=== PATIENT | female | born 1990 | race Caucasian/White ===

== ENCOUNTER 2016-08-18 14:43 | Observation (INO) ==
--- NOTE | 2016-08-18 15:22 | Emergency Department Note ---
Disposition Clinical Impression: Edema, IVDU (intravenous drug user), Nausea, Viral infection Disposition: Admitted As Inpatient Condition: Fair Referrals: NO,PCP [Primary Care Provider] - Forms: ED Satisfaction Letter General Adult HPI - General Chief complaint: ED Upper Respiratory Infection Stated complaint: swelling hands.feet and tired Time Seen by Provider: 08/18/16 15:18 Source: patient Limitations: no limitations - History of Present Illness Pain Scale: 4 - Related Data Home Medications Medication Instructions Recorded Confirmed No Known Home Drugs 08/18/16 08/18/16 Allergies Allergy/AdvReac Type Severity Reaction Status Date / Time vancomycin Allergy Itching Verified 05/14/16 10:13 Past Medical History - Past Medical History Medical history: Reports: no medical history Surgical history: Reports: non-contributory Psychiatric history: Reports: anxiety, bipolar, depression, previous psychiatric hospitalization, 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 - Social History Smoking Status: Current every day smoker Smokeless Tobacco Status: No Alcohol use: Reports: occasionally Drug use: Reports: cocaine, opiates, IVDU Physical Exam - General Limitations: no limitations General appearance: alert, in no apparent distress Course Vital Signs Temperature 98.1 F 08/18/16 14:44 Pulse Rate 103 08/18/16 14:44 Respiratory Rate 16 08/18/16 14:44 Blood Pressure 123/72 08/18/16 14:44 O2 Sat by Pulse Oximetry 98 08/18/16 14:44 Temperature 98.1 F 08/18/16 14:44 Pulse Rate 107 08/18/16 17:45 Respiratory Rate 18 08/18/16 17:45 Blood Pressure 122/84 08/18/16 17:45 O2 Sat by Pulse Oximetry 100 08/18/16 17:45 Oxygen Delivery Oxygen Delivery Room Air Medical Decision Making - Lab Data Result diagrams: 08/18/16 16:40 08/18/16 16:40 Lab Results 08/18/16 08/18/16 08/18/16 Range/Units 16:35 16:40 16:40 WBC (4.3-11.1) K/mcL RBC (3.82-4.97) M/mcL Hgb (11.5-15.4) g/dL Hct (35.3-44.9) % MCV (83.0-100.0) fL MCH (28.0-33.3) pg MCHC (31.6-35.5) g/dL RDW (11.5-14.5) % Plt Count (140-400) K/mcL MPV (9.4-12.4) fL Immature Gran % (0-4) % Seg Neutrophils % % Lymphocytes % % Monocytes % % Eosinophils % % Basophils % % Neutrophils # (1.6-8.9) K/mcL Lymphocytes # (0.6-4.6) K/mcL Monocytes # (0.0-1.3) K/mcL Eosinophils # (0.0-0.6) K/mcL Basophils # (0.0-0.2) K/mcL ESR 10 (0-15) mm/hr PT (9.4-12.1) Seconds INR APTT (26.0-36.0) Seconds Sodium (136-145) mEq/L Potassium (3.5-4.5) mEq/L Chloride (98-109) mEq/L Carbon Dioxide (19-29) mEq/L BUN (7-20) mg/dL Creatinine (0.57-1.11) mg/dL Est GFR ( Amer) (> 60) Est GFR (Non-Af Amer) (> 60) BUN/Creatinine Ratio (6-26) Glucose (70-99) mg/dL Calculated Osmolality (280-300) Lactic Acid 1.2 (0.5-2.2) mmol/L Calcium (8.6-10.8) mg/dL Total Bilirubin (0.2-1.2) mg/dL Direct Bilirubin (0.0-0.5) mg/dL Indirect Bilirubin (0.0-1.2) mg/dL AST (5-34) Units/L ALT (0-55) Units/L Alkaline Phosphatase (38-126) Units/L Ammonia 21 (18-72) mcmol/L Troponin I (0-0.03) ng/mL C-Reactive Protein (Less than 5) mg/L B-Natriuretic Peptide (0-100) pg/mL Serum Total Protein (6.0-8.3) g/dL Albumin (3.5-5.0) g/dL Globulin (2.4-3.5) g/dL Albumin/Globulin Ratio (1.1-2.2) Lipase (8-78) Units/L Urine Color (Yellow) Urine Clarity (Clear) Urine pH (5.0-8.0) pH Units Ur Specific Hensley (1.010-1.025) Urine Protein (Neg-Trace) mg/dL Urine Glucose (UA) (Normal) mg/dL Urine Ketones (Negative) mg/dL Urine Blood (Negative) Urine Nitrite (Negative) Urine Bilirubin (Negative) Urine Urobilinogen (Normal) mg/dL Ur Leukocyte Esterase (Negative) Urine Microscopic RBC (0-3) per hpf Urine Microscopic WBC (0-3) per hpf Ur Squamous Epith Cells (None-Few) per lpf Urine Bacteria (None-Few) per hpf Hyaline Casts (None-Few) per lpf Ur Culture Indicated? (NO) Urine Test (Negative) 08/18/16 08/18/16 08/18/16 Range/Units 16:40 16:40 16:40 WBC (4.3-11.1) K/mcL RBC (3.82-4.97) M/mcL Hgb (11.5-15.4) g/dL Hct (35.3-44.9) % MCV (83.0-100.0) fL MCH (28.0-33.3) pg MCHC (31.6-35.5) g/dL RDW (11.5-14.5) % Plt Count (140-400) K/mcL MPV (9.4-12.4) fL Immature Gran % (0-4) % Seg Neutrophils % % Lymphocytes % % Monocytes % % Eosinophils % % Basophils % % Neutrophils # (1.6-8.9) K/mcL Lymphocytes # (0.6-4.6) K/mcL Monocytes # (0.0-1.3) K/mcL Eosinophils # (0.0-0.6) K/mcL Basophils # (0.0-0.2) K/mcL ESR (0-15) mm/hr PT 10.2 (9.4-12.1) Seconds INR 1.0 APTT 30.6 (26.0-36.0) Seconds Sodium (136-145) mEq/L Potassium (3.5-4.5) mEq/L Chloride (98-109) mEq/L Carbon Dioxide (19-29) mEq/L BUN (7-20) mg/dL Creatinine (0.57-1.11) mg/dL Est GFR ( Amer) (> 60) Est GFR (Non-Af Amer) (> 60) BUN/Creatinine Ratio (6-26) Glucose (70-99) mg/dL Calculated Osmolality (280-300) Lactic Acid (0.5-2.2) mmol/L Calcium (8.6-10.8) mg/dL Total Bilirubin (0.2-1.2) mg/dL Direct Bilirubin (0.0-0.5) mg/dL Indirect Bilirubin (0.0-1.2) mg/dL AST (5-34) Units/L ALT (0-55) Units/L Alkaline Phosphatase (38-126) Units/L Ammonia (18-72) mcmol/L Troponin I (0-0.03) ng/mL C-Reactive Protein 15 H (Less than 5) mg/L B-Natriuretic Peptide 16 (0-100) pg/mL Serum Total Protein (6.0-8.3) g/dL Albumin (3.5-5.0) g/dL Globulin (2.4-3.5) g/dL Albumin/Globulin Ratio (1.1-2.2) Lipase (8-78) Units/L Urine Color (Yellow) Urine Clarity (Clear) Urine pH (5.0-8.0) pH Units Ur Specific Hensley (1.010-1.025) Urine Protein (Neg-Trace) mg/dL Urine Glucose (UA) (Normal) mg/dL Urine Ketones (Negative) mg/dL Urine Blood (Negative) Urine Nitrite (Negative) Urine Bilirubin (Negative) Urine Urobilinogen (Normal) mg/dL Ur Leukocyte Esterase (Negative) Urine Microscopic RBC (0-3) per hpf Urine Microscopic WBC (0-3) per hpf Ur Squamous Epith Cells (None-Few) per lpf Urine Bacteria (None-Few) per hpf Hyaline Casts (None-Few) per lpf Ur Culture Indicated? (NO) Urine Test (Negative) 08/18/16 08/18/16 08/18/16 Range/Units 16:40 16:40 16:40 WBC 6.5 (4.3-11.1) K/mcL RBC 4.14 (3.82-4.97) M/mcL Hgb 13.4 (11.5-15.4) g/dL Hct 39.5 (35.3-44.9) % MCV 95.4 (83.0-100.0) fL MCH 32.4 (28.0-33.3) pg MCHC 33.9 (31.6-35.5) g/dL RDW 12.5 (11.5-14.5) % Plt Count 304 (140-400) K/mcL MPV 9.3 L (9.4-12.4) fL Immature Gran % 0.2 (0-4) % Seg Neutrophils % 69.2 % Lymphocytes % 23.9 % Monocytes % 5.6 % Eosinophils % 0.9 % Basophils % 0.2 % Neutrophils # 4.5 (1.6-8.9) K/mcL Lymphocytes # 1.5 (0.6-4.6) K/mcL Monocytes # 0.4 (0.0-1.3) K/mcL Eosinophils # 0.1 (0.0-0.6) K/mcL Basophils # 0.0 (0.0-0.2) K/mcL ESR (0-15) mm/hr PT (9.4-12.1) Seconds INR APTT (26.0-36.0) Seconds Sodium 141 (136-145) mEq/L Potassium 4.0 (3.5-4.5) mEq/L Chloride 107 (98-109) mEq/L Carbon Dioxide 25 (19-29) mEq/L BUN 6 L (7-20) mg/dL Creatinine 0.70 (0.57-1.11) mg/dL Est GFR ( Amer) > 60 (> 60) Est GFR (Non-Af Amer) > 60 (> 60) BUN/Creatinine Ratio 9 (6-26) Glucose 101 H (70-99) mg/dL Calculated Osmolality 290 (280-300) Lactic Acid (0.5-2.2) mmol/L Calcium 9.1 (8.6-10.8) mg/dL Total Bilirubin (0.2-1.2) mg/dL Direct Bilirubin (0.0-0.5) mg/dL Indirect Bilirubin (0.0-1.2) mg/dL AST (5-34) Units/L ALT (0-55) Units/L Alkaline Phosphatase (38-126) Units/L Ammonia (18-72) mcmol/L Troponin I 0.00 (0-0.03) ng/mL C-Reactive Protein (Less than 5) mg/L B-Natriuretic Peptide (0-100) pg/mL Serum Total Protein (6.0-8.3) g/dL Albumin (3.5-5.0) g/dL Globulin (2.4-3.5) g/dL Albumin/Globulin Ratio (1.1-2.2) Lipase (8-78) Units/L Urine Color (Yellow) Urine Clarity (Clear) Urine pH (5.0-8.0) pH Units Ur Specific Hensley (1.010-1.025) Urine Protein (Neg-Trace) mg/dL Urine Glucose (UA) (Normal) mg/dL Urine Ketones (Negative) mg/dL Urine Blood (Negative) Urine Nitrite (Negative) Urine Bilirubin (Negative) Urine Urobilinogen (Normal) mg/dL Ur Leukocyte Esterase (Negative) Urine Microscopic RBC (0-3) per hpf Urine Microscopic WBC (0-3) per hpf Ur Squamous Epith Cells (None-Few) per lpf Urine Bacteria (None-Few) per hpf Hyaline Casts (None-Few) per lpf Ur Culture Indicated? (NO) Urine Test (Negative) 08/18/16 08/18/16 08/18/16 Range/Units 16:40 17:40 17:40 WBC (4.3-11.1) K/mcL RBC (3.82-4.97) M/mcL Hgb (11.5-15.4) g/dL Hct (35.3-44.9) % MCV (83.0-100.0) fL MCH (28.0-33.3) pg MCHC (31.6-35.5) g/dL RDW (11.5-14.5) % Plt Count (140-400) K/mcL MPV (9.4-12.4) fL Immature Gran % (0-4) % Seg Neutrophils % % Lymphocytes % % Monocytes % % Eosinophils % % Basophils % % Neutrophils # (1.6-8.9) K/mcL Lymphocytes # (0.6-4.6) K/mcL Monocytes # (0.0-1.3) K/mcL Eosinophils # (0.0-0.6) K/mcL Basophils # (0.0-0.2) K/mcL ESR (0-15) mm/hr PT (9.4-12.1) Seconds INR APTT (26.0-36.0) Seconds Sodium (136-145) mEq/L Potassium (3.5-4.5) mEq/L Chloride (98-109) mEq/L Carbon Dioxide (19-29) mEq/L BUN (7-20) mg/dL Creatinine (0.57-1.11) mg/dL Est GFR ( Amer) (> 60) Est GFR (Non-Af Amer) (> 60) BUN/Creatinine Ratio (6-26) Glucose (70-99) mg/dL Calculated Osmolality (280-300) Lactic Acid (0.5-2.2) mmol/L Calcium (8.6-10.8) mg/dL Total Bilirubin 0.4 (0.2-1.2) mg/dL Direct Bilirubin 0.2 (0.0-0.5) mg/dL Indirect Bilirubin 0.2 (0.0-1.2) mg/dL AST 39 H (5-34) Units/L ALT 39 (0-55) Units/L Alkaline Phosphatase 86 (38-126) Units/L Ammonia (18-72) mcmol/L Troponin I (0-0.03) ng/mL C-Reactive Protein (Less than 5) mg/L B-Natriuretic Peptide (0-100) pg/mL Serum Total Protein 6.6 (6.0-8.3) g/dL Albumin 3.5 (3.5-5.0) g/dL Globulin 3.1 (2.4-3.5) g/dL Albumin/Globulin Ratio 1.1 (1.1-2.2) Lipase 14 (8-78) Units/L Urine Color Yellow (Yellow) Urine Clarity Cloudy A (Clear) Urine pH 7.5 (5.0-8.0) pH Units Ur Specific Hensley 1.017 (1.010-1.025) Urine Protein Trace (Neg-Trace) mg/dL Urine Glucose (UA) Normal (Normal) mg/dL Urine Ketones Negative (Negative) mg/dL Urine Blood Negative (Negative) Urine Nitrite Negative (Negative) Urine Bilirubin Negative (Negative) Urine Urobilinogen Normal (Normal) mg/dL Ur Leukocyte Esterase Small H (Negative) Urine Microscopic RBC 0-3 (0-3) per hpf Urine Microscopic WBC 5-15 H (0-3) per hpf Ur Squamous Epith Cells Many H (None-Few) per lpf Urine Bacteria Moderate H (None-Few) per hpf Hyaline Casts None Seen (None-Few) per lpf Ur Culture Indicated? YES A (NO) Urine Test Negative (Negative) Attestation Statement - Attestation Attestation: I examined this patient and my medical decision-making was reviewed with the BINDER CASER/PA/Advanced Practice Nurse/Resident Physician. I agree with the documented findings, disposition and treatment plan as described except to the extent set forth below. [id number] time provided Patient appears disheveled and unkempt. She complains of swelling in her hands and feet as well as recent fevers. She also notes a "sinus infection." Mild symmetric swelling noted to both of her hands. She states this has happened to her previously with her "ammonia levels were up." She has a history of hepatitis 17:50: Given the history of IV drug use and fever and chills, I am concerned about endocarditis versus bacteremia. Admission to the medicine service requested for culture follow-up and possible echocardiogram
[2016-08-18] MEDS ORDERED: 0.9 % Sodium Chloride 500 ML IVC ONE (15:29)
[2016-08-18 16:50] LABS: Basophils % 0.2 %; Eosinophils # 0.1 K/mcL (0.0-0.6); Eosinophils % 0.9 %; Hematocrit 39.5 % (35.3-44.9); Hemoglobin 13.4 g/dL (11.5-15.4); Immature Granulocytes % 0.2 % (0-4); Lymphocytes # 1.5 K/mcL (0.6-4.6); Lymphocytes % 23.9 %; Mean Corpuscular HGB Conc 33.9 g/dL (31.6-35.5); Mean Corpuscular Hemoglobin 32.4 pg (28.0-33.3); Mean Corpuscular Volume 95.4 fL (83.0-100.0); Mean Platelet Volume 9.3 fL (9.4-12.4); Monocytes # 0.4 K/mcL (0.0-1.3); Monocytes % 5.6 %; Neutrophils # 4.5 K/mcL (1.6-8.9); Platelet Count 304 K/mcL (140-400); Red Blood Count 4.14 M/mcL (3.82-4.97); Red Cell Distribution Width 12.5 % (11.5-14.5); Segmented Neutrophils % 69.2 %
[2016-08-18 16:55] LABS: Prothrombin Time 10.2 Seconds (9.4-12.1)
[2016-08-18 16:58] LABS: Activated Partial Thrombo Time 30.6 Seconds (26.0-36.0)
[2016-08-18 17:05] LABS: BUN/Creatinine Ratio 9 (6-26); Blood Urea Nitrogen 6 mg/dL (7-20); Calcium 9.1 mg/dL (8.6-10.8); Carbon Dioxide 25 mEq/L (19-29); Chloride 107 mEq/L (98-109); Glucose 101 mg/dL (70-99); Osmolality,Calculated 290 (280-300); Sodium 141 mEq/L (136-145); eGFR For African Americans > 60 (> 60); eGFR For Non-African Americans > 60 (> 60)
--- NOTE | 2016-08-18 17:07 | Emergency Department Note ---
Disposition Clinical Impression: IVDU (intravenous drug user), Nausea, Viral infection Edema Qualifiers: Edema type: localized Qualified Code(s): R60.0 - Localized edema Disposition: Admitted As Inpatient Condition: Fair Referrals: NO,PCP [Primary Care Provider] - Forms: ED Satisfaction Letter Time of Disposition: 18:21 General Adult HPI - General Chief complaint: ED Upper Respiratory Infection Stated complaint: swelling hands.feet and tired Time Seen by Provider: 08/18/16 15:18 Source: patient Limitations: no limitations Nursing Notes Reviewed: Yes Vital Signs Reviewed: Yes - History of Present Illness HPI Narrative: 26-year-old female with nausea vomiting, bilateral hand and feet swelling. Patient history of a similar increased swelling when she had an elevated ammonia in the past. Patient admits to IV drug abuse in the last day. She has been clean and [facility] but was discharged a few weeks ago and since then is gone back to using heroin. Patient reports a history of hepatitis. Patient denies a history of heart disease or endocarditis. Patient reports she has been somewhat short of breath lately as well, reports intermittent chest pain with coughing. Patient states that she woke up with diaphoresis drenched in sweat last night. She denies abdominal pain, urinary complaints, weight loss, weight changes. Pt Subjective Complaint: Hand Swelling and Leg Swelling Onset (ago): day(s) Location: left, right, upper extremity, lower extremity Radiation: extremity Pain Severity: mild Pain Scale: 0 Quality: other (Swelling) Improves with: nothing Worsens with: nothing Associated symptoms: Reports: fever/chills, nausea/vomiting, weakness - Related Data Home Medications Medication Instructions Recorded Confirmed Effexor 05/13/16 Previous Rx's Medication Instructions Recorded Clindamycin HCl [Cleocin HCl] 300 mg PO TID #30 cap 05/13/16 Ibuprofen [Motrin] 800 mg PO Q6-8H PRN #30 tablet 05/13/16 Mupirocin [Bactroban Oint] 1 appl TP BID #44 g 05/13/16 Allergies Allergy/AdvReac Type Severity Reaction Status Date / Time vancomycin Allergy Itching Verified 05/14/16 10:13 Review of Systems: All systems were reviewed with historian and negative except as per below, or as documented in the HPI. Constitutional: She reports fever, chills, Eyes: Denies: vision changes, eye pain ENT: Denies: nasal congestion, sore throat CV: Denies: chest pain, palpitations, leg swelling Resp: Denies: cough, dyspnea, wheezes, hemoptysis GI: Denies: abdominal pain, N/V/D/C, hematochezia, melena Denies: dysuria, hematuria MSK: Patient reports extremity swelling bilateral upper and lower hands and feet Skin: Denies: new rashes, new lesions Neuro: Denies: GARCIA, weakness, sensory changes, gait difficulty Psych: Denies: anxiety, depression All systems ED: reviewed and negative except as stated. Past Medical History - Past Medical History Attestation: Yes The following information was validated with the patient. 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 - Social History Smoking Status: Current every day smoker Smokeless Tobacco Status: No Alcohol use: Reports: occasionally Drug use: Reports: cocaine, opiates, IVDU Physical Exam Constitutional: alert and oriented, in NAD, vital signs reviewed within normal limits HEENT: NCAT, sclera anicteric, PERRLA bilaterally, normal external ears bilaterally, nasal septum nondeviated, average dentition, MMM Neck: normal inspection, neck is supple, trachea midline, no JVD Resp: normal chest inspection, coarse breath sounds bilaterally, no resp distress, symmetric chest rise CV: RRR, no m/g/r, Pulses +2 Rad, +2 DP/PT bilaterally, no pedal edema GI: normal inspection, Soft, NTND, BS present and normoactive Ext: Bilateral edema nonpitting the hands and feet, warm to touch, no evidence of cellulitis. Skin: No rashes, skin warm, dry, intact - General Limitations: no limitations General appearance: alert, in no apparent distress Course Course Narrative: The patient's history of IV drug use, fever or chills diaphoresis and bilateral hand swelling and concern for endocarditis, do not notes any Osler's nodes get blood work, with cultures chest x-ray urinalysis flu swab IV fluids reassess. - Reevaluation(s) Reevaluation #1: admitted to [facility] [employer] in stable condition. Time: 18:24 Vital Signs Temperature 98.1 F 08/18/16 14:44 Pulse Rate 103 08/18/16 14:44 Respiratory Rate 16 08/18/16 14:44 Blood Pressure 123/72 08/18/16 14:44 O2 Sat by Pulse Oximetry 98 08/18/16 14:44 Temperature 98.1 F 08/18/16 14:44 Pulse Rate 107 08/18/16 17:45 Respiratory Rate 18 08/18/16 17:45 Blood Pressure 122/84 08/18/16 17:45 O2 Sat by Pulse Oximetry 100 08/18/16 17:45 Oxygen Delivery Oxygen Delivery Room Air Medical Decision Making - MDM Narrative Medical decision making narrative: 26-year-old female with history and recent IV drug use, has fevers chills bilateral upper and lower extremity swelling, concerning for endocarditis for one to admit to hospital service for echocardiogram and follow blood cultures, this time no evidence of infection however her story is concerning given diaphoresis and bilateral extremity symptoms. - Medical Records Medical records reviewed: Yes I reviewed the patient's medical records. - Lab Data Lab results reviewed: Yes I reviewed the patient's lab results. Result diagrams: 08/18/16 16:40 08/18/16 16:40 Lab Results 08/18/16 08/18/16 08/18/16 Range/Units 16:35 16:40 16:40 WBC (4.3-11.1) K/mcL RBC (3.82-4.97) M/mcL Hgb (11.5-15.4) g/dL Hct (35.3-44.9) % MCV (83.0-100.0) fL MCH (28.0-33.3) pg MCHC (31.6-35.5) g/dL RDW (11.5-14.5) % Plt Count (140-400) K/mcL MPV (9.4-12.4) fL Immature Gran % (0-4) % Seg Neutrophils % % Lymphocytes % % Monocytes % % Eosinophils % % Basophils % % Neutrophils # (1.6-8.9) K/mcL Lymphocytes # (0.6-4.6) K/mcL Monocytes # (0.0-1.3) K/mcL Eosinophils # (0.0-0.6) K/mcL Basophils # (0.0-0.2) K/mcL ESR 10 (0-15) mm/hr PT (9.4-12.1) Seconds INR APTT (26.0-36.0) Seconds Sodium (136-145) mEq/L Potassium (3.5-4.5) mEq/L Chloride (98-109) mEq/L Carbon Dioxide (19-29) mEq/L BUN (7-20) mg/dL Creatinine (0.57-1.11) mg/dL Est GFR ( Amer) (> 60) Est GFR (Non-Af Amer) (> 60) BUN/Creatinine Ratio (6-26) Glucose (70-99) mg/dL Calculated Osmolality (280-300) Lactic Acid 1.2 (0.5-2.2) mmol/L Calcium (8.6-10.8) mg/dL Total Bilirubin (0.2-1.2) mg/dL Direct Bilirubin (0.0-0.5) mg/dL Indirect Bilirubin (0.0-1.2) mg/dL AST (5-34) Units/L ALT (0-55) Units/L Alkaline Phosphatase (38-126) Units/L Ammonia 21 (18-72) mcmol/L Troponin I (0-0.03) ng/mL C-Reactive Protein (Less than 5) mg/L B-Natriuretic Peptide (0-100) pg/mL Serum Total Protein (6.0-8.3) g/dL Albumin (3.5-5.0) g/dL Globulin (2.4-3.5) g/dL Albumin/Globulin Ratio (1.1-2.2) Lipase (8-78) Units/L 08/18/16 08/18/16 08/18/16 Range/Units 16:40 16:40 16:40 WBC (4.3-11.1) K/mcL RBC (3.82-4.97) M/mcL Hgb (11.5-15.4) g/dL Hct (35.3-44.9) % MCV (83.0-100.0) fL MCH (28.0-33.3) pg MCHC (31.6-35.5) g/dL RDW (11.5-14.5) % Plt Count (140-400) K/mcL MPV (9.4-12.4) fL Immature Gran % (0-4) % Seg Neutrophils % % Lymphocytes % % Monocytes % % Eosinophils % % Basophils % % Neutrophils # (1.6-8.9) K/mcL Lymphocytes # (0.6-4.6) K/mcL Monocytes # (0.0-1.3) K/mcL Eosinophils # (0.0-0.6) K/mcL Basophils # (0.0-0.2) K/mcL ESR (0-15) mm/hr PT 10.2 (9.4-12.1) Seconds INR 1.0 APTT 30.6 (26.0-36.0) Seconds Sodium (136-145) mEq/L Potassium (3.5-4.5) mEq/L Chloride (98-109) mEq/L Carbon Dioxide (19-29) mEq/L BUN (7-20) mg/dL Creatinine (0.57-1.11) mg/dL Est GFR ( Amer) (> 60) Est GFR (Non-Af Amer) (> 60) BUN/Creatinine Ratio (6-26) Glucose (70-99) mg/dL Calculated Osmolality (280-300) Lactic Acid (0.5-2.2) mmol/L Calcium (8.6-10.8) mg/dL Total Bilirubin (0.2-1.2) mg/dL Direct Bilirubin (0.0-0.5) mg/dL Indirect Bilirubin (0.0-1.2) mg/dL AST (5-34) Units/L ALT (0-55) Units/L Alkaline Phosphatase (38-126) Units/L Ammonia (18-72) mcmol/L Troponin I (0-0.03) ng/mL C-Reactive Protein 15 H (Less than 5) mg/L B-Natriuretic Peptide 16 (0-100) pg/mL Serum Total Protein (6.0-8.3) g/dL Albumin (3.5-5.0) g/dL Globulin (2.4-3.5) g/dL Albumin/Globulin Ratio (1.1-2.2) Lipase (8-78) Units/L 08/18/16 08/18/16 08/18/16 Range/Units 16:40 16:40 16:40 WBC 6.5 (4.3-11.1) K/mcL RBC 4.14 (3.82-4.97) M/mcL Hgb 13.4 (11.5-15.4) g/dL Hct 39.5 (35.3-44.9) % MCV 95.4 (83.0-100.0) fL MCH 32.4 (28.0-33.3) pg MCHC 33.9 (31.6-35.5) g/dL RDW 12.5 (11.5-14.5) % Plt Count 304 (140-400) K/mcL MPV 9.3 L (9.4-12.4) fL Immature Gran % 0.2 (0-4) % Seg Neutrophils % 69.2 % Lymphocytes % 23.9 % Monocytes % 5.6 % Eosinophils % 0.9 % Basophils % 0.2 % Neutrophils # 4.5 (1.6-8.9) K/mcL Lymphocytes # 1.5 (0.6-4.6) K/mcL Monocytes # 0.4 (0.0-1.3) K/mcL Eosinophils # 0.1 (0.0-0.6) K/mcL Basophils # 0.0 (0.0-0.2) K/mcL ESR (0-15) mm/hr PT (9.4-12.1) Seconds INR APTT (26.0-36.0) Seconds Sodium 141 (136-145) mEq/L Potassium 4.0 (3.5-4.5) mEq/L Chloride 107 (98-109) mEq/L Carbon Dioxide 25 (19-29) mEq/L BUN 6 L (7-20) mg/dL Creatinine 0.70 (0.57-1.11) mg/dL Est GFR ( Amer) > 60 (> 60) Est GFR (Non-Af Amer) > 60 (> 60) BUN/Creatinine Ratio 9 (6-26) Glucose 101 H (70-99) mg/dL Calculated Osmolality 290 (280-300) Lactic Acid (0.5-2.2) mmol/L Calcium 9.1 (8.6-10.8) mg/dL Total Bilirubin (0.2-1.2) mg/dL Direct Bilirubin (0.0-0.5) mg/dL Indirect Bilirubin (0.0-1.2) mg/dL AST (5-34) Units/L ALT (0-55) Units/L Alkaline Phosphatase (38-126) Units/L Ammonia (18-72) mcmol/L Troponin I 0.00 (0-0.03) ng/mL C-Reactive Protein (Less than 5) mg/L B-Natriuretic Peptide (0-100) pg/mL Serum Total Protein (6.0-8.3) g/dL Albumin (3.5-5.0) g/dL Globulin (2.4-3.5) g/dL Albumin/Globulin Ratio (1.1-2.2) Lipase (8-78) Units/L 08/18/16 Range/Units 16:40 WBC (4.3-11.1) K/mcL RBC (3.82-4.97) M/mcL Hgb (11.5-15.4) g/dL Hct (35.3-44.9) % MCV (83.0-100.0) fL MCH (28.0-33.3) pg MCHC (31.6-35.5) g/dL RDW (11.5-14.5) % Plt Count (140-400) K/mcL MPV (9.4-12.4) fL Immature Gran % (0-4) % Seg Neutrophils % % Lymphocytes % % Monocytes % % Eosinophils % % Basophils % % Neutrophils # (1.6-8.9) K/mcL Lymphocytes # (0.6-4.6) K/mcL Monocytes # (0.0-1.3) K/mcL Eosinophils # (0.0-0.6) K/mcL Basophils # (0.0-0.2) K/mcL ESR (0-15) mm/hr PT (9.4-12.1) Seconds INR APTT (26.0-36.0) Seconds Sodium (136-145) mEq/L Potassium (3.5-4.5) mEq/L Chloride (98-109) mEq/L Carbon Dioxide (19-29) mEq/L BUN (7-20) mg/dL Creatinine (0.57-1.11) mg/dL Est GFR ( Amer) (> 60) Est GFR (Non-Af Amer) (> 60) BUN/Creatinine Ratio (6-26) Glucose (70-99) mg/dL Calculated Osmolality (280-300) Lactic Acid (0.5-2.2) mmol/L Calcium (8.6-10.8) mg/dL Total Bilirubin 0.4 (0.2-1.2) mg/dL Direct Bilirubin 0.2 (0.0-0.5) mg/dL Indirect Bilirubin 0.2 (0.0-1.2) mg/dL AST 39 H (5-34) Units/L ALT 39 (0-55) Units/L Alkaline Phosphatase 86 (38-126) Units/L Ammonia (18-72) mcmol/L Troponin I (0-0.03) ng/mL C-Reactive Protein (Less than 5) mg/L B-Natriuretic Peptide (0-100) pg/mL Serum Total Protein 6.6 (6.0-8.3) g/dL Albumin 3.5 (3.5-5.0) g/dL Globulin 3.1 (2.4-3.5) g/dL Albumin/Globulin Ratio 1.1 (1.1-2.2) Lipase 14 (8-78) Units/L - EKG Data EKG #1 EKG attestation: Yes I reviewed and interpreted this EKG. EKG shows normal: sinus rhythm Rate: normal Rhythm: NSR (87 bpm RI 142 QRS 98 QTc 412 L axis deviation.) Interpretation: normal EKG
[2016-08-18 17:09] LABS: Albumin 3.5 g/dL (3.5-5.0); Albumin/Globulin Ratio 1.1 (1.1-2.2); Bilirubin,Direct 0.2 mg/dL (0.0-0.5); Bilirubin,Indirect 0.2 mg/dL (0.0-1.2); Bilirubin,Total 0.4 mg/dL (0.2-1.2); Globulin 3.1 g/dL (2.4-3.5); Total Protein 6.6 g/dL (6.0-8.3)
[2016-08-18] MEDS ORDERED: cloNIDine HCl 0.1 MG TABLET PO ONE (17:50)
[2016-08-18] MEDS ORDERED: Prochlorperazine 10 MG/2 ML VIAL IVP STA (17:50)
[2016-08-18 18:08] LABS: Bilirubin,Urine Negative (Negative); Blood,Urine Negative (Negative); Clarity,Urine Cloudy (Clear); Color,Urine Yellow (Yellow); Glucose,Urine (UA) Normal (Normal); Ketones,Urine Negative (Negative); Leukocyte Esterase,Urine Small (Negative); Nitrite,Urine Negative (Negative); PH,Urine 7.5 pH Units (5.0-8.0); Protein,Urine Trace mg/dL (Neg-Trace); Specific Gravity,Urine 1.017 (1.010-1.025); Urobilinogen,Urine Normal (Normal)
[2016-08-18 18:09] LABS: Bacteria,Urine Moderate per hpf (None-Few); Hyaline Casts,Urine None Seen per lpf (None-Few); RBC,Urine 0-3 per hpf (0-3); Squamous Epithelial Cell,Urine Many per lpf (None-Few)
--- NOTE | 2016-08-18 19:57 | Internal Med History&Physical ---
Date of Encounter: 08/18/16 Time of Encounter: 19:45 Assessment and Plan (1) Swelling of extremity Current visit: Yes Status: Acute In setting of IVDA and recent fevers, we certainly need to rule out endocarditis She did not have any murmurs or skin findings, but will still do further workup with TTE and await blood cultures Patient does have intermittent tachycardia but no current fever, leukocytosis or tachypenia suggesting active infection No urgent need for antibiotics at this time In the meantime, will also workup rheumatologic vs. metabolic with PATRICIA, RF, TSH , Hep profile (2) IVDU (intravenous drug user) Current visit: Yes Status: Chronic Patient may benefit from going into rehab or seeking narcotics anonymous upon discharge Will consult director of social services to facilitate services (3) DVT prophylaxis Current visit: Yes Status: Acute Heparin 5000 units BID Internal Medicine - H&P: HPI Chief complaint: Swelling of hands and feet Admitted From: Home Plans for Post Hospital Care: Home History of present illness: Ms. Adams is a 26 year old female who presents to the emergency department with bilateral hand and feet swelling. She states that the symptoms started roughly a week ago and has not done any worse. She also reports having a fever during this time although she did not check her temperature, she said she felt hot and sweaty. She does admit to a history of IV drug abuse with heroin. She was recently released from snf 2 weeks ago and started using again, and claims she last used this morning. She did not take any medications for her symptoms, and denies any cardiac or other medical history other than psychiatric. She did have a history of suicidal thoughts in the past but currently denies any homicidal or suicidal ideations. Patient denies any chest pain, shortness of breath, nausea, vomiting, diarrhea, lightheadedness, or skin changes. Past Med Surg Social Fam HX - Past Medical History Medical history: no medical history Psychiatric history: anxiety, bipolar, depression, previous psychiatric hospitalization, other - Past Surgical History Surgical History: non-contributory - Social History Smoking Status: Current every day smoker Smokeless Tobacco Status: No Alcohol use: occasionally Drug use: cocaine, opiates, IVDU Internal Medicine - H&P: Meds No Known Home Drugs 08/18/16 [History] Allergies vancomycin Allergy (Verified 05/14/16 10:13) Itching All Systems PM: A 10-system review of systems was performed and is negative for pertinent findings except as documented above in the HPI. - Constitutional Constitutional: fever(s), no chills, no night sweats - EENT Eyes: no change in vision, no discharge, no pain, no photophobia Ears: no ear discharge, no ear pain, no tinnitus Nose, mouth and throat: no dysphagia, no nasal discharge, no neck pain, no sore throat - Cardiovascular Cardiovascular ROS IM: no chest pain, no diaphoresis, no dyspnea, no irregular heart rhythm, no lightheadedness, no palpitations, no syncope - Respiratory Respiratory: no cough, no dyspnea, no wheezing, no excessive phlegm production - Gastrointestinal Gastrointestinal: no abdominal pain, no diarrhea, no hematemesis, no hematochezia, no melena, no nausea, no vomiting - Genitourinary Genitourinary: no change in urinary stream, no dysuria, no flank pain, no hematuria - Musculoskeletal Musculoskeletal ROS IM: as per HPI, arthralgias (at knees), no numbness, no tingling - Integumentary Integumentary IM: no rash, no unusual bruising - Neurological Neurological ROS: no confusion, no convulsions, no focal weakness, no numbness, no tingling, no tremor(s) - Hematologic/Lymphatic Hematologic/Lymphatic: no easy bruising - Constitutional Vitals: Temp Pulse Resp BP Pulse Ox 98.1 F 107 18 122/84 100 08/18/16 14:44 08/18/16 17:45 08/18/16 17:45 08/18/16 17:45 08/18/16 17:45 General appearance: Present: cooperative, pleasant, no acute distress, answers questions appropriately Exam: appear somnolent, but does answer questions appropriately and follows commands - Head Head exam: Present: atraumatic, normocephalic - Eye Eye exam: Present: PERRL, conjuntiva pink, sclera anicteric - Neck Neck exam general surgery: Present: supple, trachea midline. Absent: lymphadenopathy - Respiratory Respiratory exam: Present: CTAB. Absent: accessory muscle use, rales, rhonchi, wheezes - Cardiovascular Cardiovascular exam: Present: RRR, +S1, +S2. Absent: diastolic murmur, gallop, rubs, systolic murmur - GI/Abdominal GI/Abdominal exam: Present: normal bowel sounds, soft, no peritoneal signs. Absent: distended, tenderness - Extremities Exam Extremities exam: Present: pedal edema (non-pitting of both hands and feet), warm, radial pulses palpable and symetrical. Absent: calf tenderness, cyanotic - Neurological Exam Neurological exam: Present: CN II-XII intact, oriented X3, no focal deficits. Absent: pronater drift, facial droop, speech deficit - Skin Skin exam: Present: dry, intact Additional comments: no evidence of Osler/Janeway lesions Internal Med - H&P Results - Labs CBC & Chem 7: 08/18/16 16:40 08/18/16 16:40 Labs: Short CBC 08/18/16 Range/Units 16:40 WBC 6.5 (4.3-11.1) K/mcL Hgb 13.4 (11.5-15.4) g/dL Hct 39.5 (35.3-44.9) % Plt Count 304 (140-400) K/mcL Neutrophils # 4.5 (1.6-8.9) K/mcL BMP 08/18/16 16:40 Sodium 141 Potassium 4.0 Chloride 107 Carbon Dioxide 25 BUN 6 L Creatinine 0.70 Glucose 101 H Calcium 9.1 Cardiac Enzymes 08/18/16 Range/Units 16:40 Troponin I 0.00 (0-0.03) ng/mL Liver Function 08/18/16 Range/Units 16:40 Total Bilirubin 0.4 (0.2-1.2) mg/dL Direct Bilirubin 0.2 (0.0-0.5) mg/dL AST 39 H (5-34) Units/L ALT 39 (0-55) Units/L Alkaline Phosphatase 86 (38-126) Units/L Albumin 3.5 (3.5-5.0) g/dL Urine 08/18/16 Range/Units 17:40 Urine Color Yellow (Yellow) Urine Clarity Cloudy A (Clear) Urine pH 7.5 (5.0-8.0) pH Units Ur Specific [place] 1.017 (1.010-1.025) Urine Protein Trace (Neg-Trace) mg/dL Urine Glucose (UA) Normal (Normal) mg/dL - Impressions ITS Impressions Chest X-Ray 08/18/16 15:30 IMPRESSION: 1. No acute abnormality. D/ / Calvin Lopez MD / Calvin Lopez MD Interpreting Provider: Calvin Lopez MD
[2016-08-18] MEDS ORDERED: Naloxone 0.4 MG/ML INJ IVP PRN (20:09)
[2016-08-18] MEDS ORDERED: Ondansetron ODT 4 MG TAB.RAPDIS SL PRN (20:09)
[2016-08-18] MEDS ORDERED: Acetaminophen 325 MG TABLET PO PRN (20:09)
[2016-08-19] MEDS: *HR* Heparin 5,000 UNIT/ML VIAL SQ SCH ×2 (06:27→19:03)
--- NOTE | 2016-08-19 09:02 | Internal Med Progress Note ---
<Jeffrey Hernandez - Last Filed: 08/19/16 08:51> Date of Encounter: 08/19/16 Time of Encounter: 08:52 - Assessment and plan (1) Swelling of extremity Status: Acute Assessment and plan: 08/19/16 CRP mildly elevated Liver enzymes essentially normal (AST = 39) TTE pending Blood cultures and rheumatologic labs pending 08/18/16 In setting of IVDA and recent fevers, we certainly need to rule out endocarditis She did not have any murmurs or skin findings, but will still do further workup with TTE and await blood cultures Patient does have intermittent tachycardia but no current fever, leukocytosis or tachypenia suggesting active infection No urgent need for antibiotics at this time In the meantime, will also workup rheumatologic vs. metabolic with PATRICIA, RF, TSH , Hep profile (2) IVDU (intravenous drug user) Status: Chronic Assessment and plan: dining services manager have been consulted (3) DVT prophylaxis Status: Acute Assessment and plan: Heparin 5000 units BID - Subjective Interval history: Patient was seen and examined at bedside. She is sitting up in bed comfortably and in no apparent distress. She denies chest pain, shortness of breath, abdominal pain or any new complaints other than the swelling of her hands and feet - Constitutional Vitals: Temp Pulse Resp BP Pulse Ox 97.9 F 90 15 96/58 97 08/19/16 07:25 08/19/16 07:25 08/19/16 07:25 08/19/16 07:25 08/19/16 07:25 General appearance: Present: cooperative, pleasant, no acute distress, answers questions appropriately - Head Head exam: Present: atraumatic, normocephalic - Eye Eye exam: Present: PERRL, conjuntiva pink, sclera anicteric Pupils: Present: PERRL - Neck Neck exam general surgery: Present: supple, trachea midline. Absent: lymphadenopathy - Respiratory Respiratory exam: Present: CTAB. Absent: accessory muscle use, rales, rhonchi, wheezes - Cardiovascular Cardiovascular exam: Present: RRR, +S1, +S2. Absent: diastolic murmur, gallop, rubs, systolic murmur - GI/Abdominal GI/Abdominal exam: Present: normal bowel sounds, soft, no peritoneal signs. Absent: distended, tenderness - Extremities Exam Extremities exam: Present: warm, radial pulses palpable and symetrical. Absent : calf tenderness, cyanotic, pedal edema Additional comments: Nonpitting edema bilateral hands and feet - Neurological Exam Neurological exam: Present: CN II-XII intact, oriented X3, no focal deficits. Absent: pronater drift, facial droop, speech deficit - Skin Skin exam: Present: dry, intact Internal Medicine: Result - Labs CBC & Chem 7: 08/18/16 16:40 08/18/16 16:40 - ABG Interpretation ABG results: PT/INR, D-dimer PT 10.2 Seconds (9.4-12.1) 08/18/16 16:40 Consult Discharge Plan - Plan Instructions: Narcotic Abuse (DC), Methamphetamine Abuse (DC) Referrals: NO,PCP [Primary Care Provider] - <Robbie Wolff - Last Filed: 08/20/16 13:53> Date of Encounter: 08/20/16 - Constitutional Vitals: Temp Pulse Resp BP Pulse Ox 98.0 F 71 18 130/88 97 08/20/16 07:22 08/20/16 07:22 08/20/16 07:22 08/20/16 07:22 08/20/16 07:22 Internal Medicine: Result - Labs CBC & Chem 7: 08/18/16 16:40 08/18/16 16:40 - ABG Interpretation ABG results: PT/INR, D-dimer PT 10.2 Seconds (9.4-12.1) 08/18/16 16:40 - Attending Attestation I examined this patient and my medical decision-making was reviewed with the [employer]/PA/Advanced Practice Nurse/Resident Physician. I agree with the documented findings, disposition and treatment plan as described except to the extent set forth below. Seen and examined. IVDU, risk of endocarditis. Echo did not reveal vegetations. Follow blood cultures. Refused HIV testing.
--- NOTE | 2016-08-19 11:01 | ECHO - Doppler Report ---
Echocardiogram Name: Donna Adams Date of Study: 08/19/2016 Date: 1990 Ht: 64.0 in Medical Record#: [id number] Age: 26 Wt: 140.0 lb Gender: Female BSA: 1.68 Order #: [id number] Location: [facility] Room #: 3B45 Reading Physician: Kenzie Woods DO Embroidery Operator: Nafisa Maciel Ordering Physician: Huey Ventura DO Primary Physician: None Indications: IV drugs r/o endocarditis Impressions: LVEF 60%. Normal left ventricular size and systolic function. Normal diastolic function of the left ventricle. Normal right ventricular size and function. Mild pulmonic regurgitation. No pulmonary hypertension. Good quality study. No identifiable valvular vegetations. Left Ventricular Wall Motion: Rest Echo Findings All wall segments showed normal motion. Findings: Study Quality * Technically adequate exam. ECG Findings * Normal sinus rhythm. Left Ventricle * LVEF 60%. * Normal LV chamber size, wall thickness and function. * Normal left ventricular diastolic function. Left Atrium * Normal left atrial size. Mitral Valve * Normal mitral valve structure. * No mitral stenosis. * No mitral regurgitation. Aortic Valve * No aortic regurgitation. * Trileaflet aortic valve. * Normal aortic valve structure. * No aortic stenosis. Tricuspid Valve * Normal tricuspid valve structure. * Trace tricuspid regurgitation. * Estimated RA pressure is 3 mmHg. * Estimated RVSP is 17 mmHg. * No pulmonary hypertension. Pulmonic Valve * Pulmonic valve is not well visualized. * No pulmonic stenosis. * Mild pulmonic regurgitation. Pulmonary Artery * Pulmonary artery not well visualized. Right Ventricle * Normal right ventricular structure and function. Right Atrium * Normal right atrial size. Interatrial Septum * No evidence of PFO by color Doppler. IVC * Normal IVC dimensions and inspiratory collapse. Pericardium * There is no pericardial effusion present. Aorta * Normally sized aortic root. History History of Smoking Years 10 Packs 1 Measurements: BP: 99/ 70 2D Normal Values IVSd: 1.00 cm 0.6 - 1.0 cm LVIDd: 5.00 cm 3.7 - 5.6 cm LVPWd: 1.00 cm 0.6 - 1.1 cm LVIDs: 3.20 cm 1.5 - 3.6 cm AO: 2.50 cm < 4.0 cm LA: 3.30 cm 2.0 - 4.0cm %FS: 36.00 cm >25 % LA volume: 41 Mitral Valve Peak E:1.04 m/sec Peak A:.71 m/sec E/A Ratio:1.5 Peak E' Lat Bernard:15.2 cm/s Peak E' Med Bernard:10 cm/s E/E' Lat Ratio:6.8 E/E' Med Ratio:10.4 Tricuspid Valve TV Regurg Peak Grad: 14.00mmHg TV Regurg Peak Bernard: 1.90m/sec Updated by Kenzie Woods on 08/19/2016 10:57:20 AM electronically signed on 08/19/2016 10:58:14 AM with status of Final Wall Motion Walsh: 1=Normal, 2=Hypokinesis, 3=Akinesis, 4=Dyskinesis, 5=Aneurysmal, 6=Hyperkinetic, X=Not Visualized (Blank)=Missing
[2016-08-19] MEDS: Nicotine 14 MG PATCH.TD24 TD SCH (11:27)
--- NOTE | 2016-08-19 18:13 | Electrocardiograph Report ---
[address] [place], [place] [address] Test Date: 2016-08-18 Pat Name: Donna Adams Department: 104 Room: 3B45 Gender: F Health Care Coach: : 1990 Requested By: Dorian Esparza Order Number: [id number] Reading MD: Harriet Luis Measurements Intervals [place] Rate: 87 P: 58 WV: 142 QRS: -40 QRSD: 98 T: 36 QT: 368 QTc: 412 Interpretive Statements SINUS RHYTHM MARKED LEFT AXIS DEVIATION Electronically Signed On 08-19-2016 18:11:19 EST by Harriet Luis
[2016-08-19] MEDS: *HR* LORazepam 1 MG TABLET PO PRN (19:06)
[2016-08-19 19:08] LABS: Creatinine,Urine 81 mg/dL; Microalbum/Creatinine Ratio,Ur 6 (0-30)
[2016-08-19 19:09] LABS: Microalbumin,Urine < 5 mg/L
[2016-08-20] MEDS: *HR* Heparin 5,000 UNIT/ML VIAL SQ SCH (06:31)
[2016-08-20 07:23] VITALS: BP 130/88
[2016-08-20] MEDS: *HR* LORazepam 1 MG TABLET PO PRN (09:17)
[2016-08-20] MEDS: Nicotine 14 MG PATCH.TD24 TD SCH (09:17)
--- NOTE | 2016-08-20 09:29 | Discharge Summary ---
<Jeffrey Hernandez - Last Filed: 08/20/16 10:24> Date of Encounter: 08/20/16 Time of Encounter: 09:23 - Discharge Diagnosis (1) Swelling of extremity Priority: Primary Status: Acute (2) IVDU (intravenous drug user) Priority: Secondary Status: Chronic (3) DVT prophylaxis Priority: Secondary Status: Acute - Discharge Medications Home Medications: No Known Home Drugs 08/18/16 [History] Allergies/Adverse Reactions: Allergies vancomycin Allergy (Verified 05/14/16 10:13) Itching Date of admission: 08/18/16 20:36 Primary care physician: PCP PETER Discharging clinician: Robbie Wolff Anticipated date of discharge: 08/20/16 - Patient Status Disposition: Home, Self-Care Condition: Fair Functional capacity at discharge: independent ambulation Overall status at discharge: patient is progressing back to baseline - Discharge Instructions Instructions: Narcotic Abuse (DC), Methamphetamine Abuse (DC) Follow Up With: NO,PCP [Primary Care Provider] - - Diet and Activity Activity: resume usual activities as tolerated Diet: regular diet Hospital course: Ms. Adams is a 26 year old female who came to the ED 08/18/16 complaining of swelling of bilateral hands and feet for about a week as well as subjective fevers. She admits to chronic IV heroin use and has used cocaine in the past. She was admitted for concerns for endocarditis or bacteremia. She is receiving extensive workup during this hospitalization that has been grossly unremarkable. Liver function is essentially normal (AST mildly elevated at 39) . Kidney function is also normal and testing was negative for microalbuminuria. CRP mildly elevated at 15. Rheumatologic testing including rheumatoid factor, PATRICIA are pending. Blood cultures have been negative, it has been near 24 hours and patient will be contacted if any growth appears on final report. Furthermore, transthoracic echocardiogram was normal. legal services manager has been consulted regarding her drug abuse. The patient is in stable condition for discharge - Time Spent with Patient Total time spent providing and/or coordinating discharge services: Greater than 30 minutes - Constitutional Vitals: Temp Pulse Resp BP Pulse Ox 98.0 F 71 18 130/88 97 08/20/16 07:22 08/20/16 07:22 08/20/16 07:22 08/20/16 07:22 08/20/16 07:22 General appearance: Present: cooperative, pleasant, no acute distress, answers questions appropriately - Head Head exam: Present: atraumatic, normocephalic Additional comments: periorbital swelling improved relative to yesterday - Eye Eye exam: Present: PERRL, conjuntiva pink, sclera anicteric Pupils: Present: PERRL - Neck Neck exam general surgery: Present: supple, trachea midline. Absent: lymphadenopathy - Respiratory Respiratory exam: Present: CTAB. Absent: accessory muscle use, rales, rhonchi, wheezes - Cardiovascular Cardiovascular exam: Present: RRR, +S1, +S2. Absent: diastolic murmur, gallop, rubs, systolic murmur - GI/Abdominal GI/Abdominal exam: Present: normal bowel sounds, soft, no peritoneal signs. Absent: distended, tenderness - Extremities Exam Extremities exam: Present: warm, radial pulses palpable and symetrical. Absent : calf tenderness, cyanotic Additional comments: Non-pitting edema of bilateral hands and feet - Neurological Exam Neurological exam: Present: CN II-XII intact, oriented X3, no focal deficits. Absent: pronater drift, facial droop, speech deficit - Skin Skin exam: Present: dry, intact <Robbie Wolff - Last Filed: 08/20/16 13:55> Date of Encounter: 08/20/16 Date of admission: 08/18/16 20:36 Primary care physician: PCP NO Hospital course: Ms. Adams is a 26 year old female - Time Spent with Patient Total time spent providing and/or coordinating discharge services: - Constitutional Vitals: Temp Pulse Resp BP Pulse Ox 98.0 F 71 18 130/88 97 08/20/16 07:22 08/20/16 07:22 08/20/16 07:22 08/20/16 07:22 08/20/16 07:22 - Attending Attestation I examined this patient and my medical decision-making was reviewed with the [employer]/PA/Advanced Practice Nurse/Resident Physician. I agree with the documented findings, disposition and treatment plan as described except to the extent set forth below. Seen and examined with the resident. Afebrile, no leukocytosis, no growth in blood culture. Echo negative for vegetations. Swelling improved. We will discharge the patient today, she will go to an inpatient rehabilitation facility for her problem with IV drug use.
== END 2016-08-20 11:09 | disposition home or self-care (01) ==
LOC: 3BNU 14:43 → EMEROO 14:43 → SUATTDRO 20:36 → 3BNU 20:53
PROVIDERS: ADMIT Family Medicine; ATTEND Internal Medicine

== ENCOUNTER 2017-04-11 01:12 | Inpatient (IN) ==
[2017-04-11 01:55] LABS: Amphetamine Screen,Urine Negative ng/mL (Cutoff=1000); Barbiturate Screen,Urine Negative ng/mL (Cutoff=200); Benzodiazepines Screen,Urine Negative ng/mL (Cutoff=200); Cannabinoid Screen,Urine Negative ng/mL (Cutoff = 50); Cocaine Screen,Urine Negative ng/mL (Cutoff= 300); Opiate Screen,Urine Negative ng/mL (Cutoff=300); Phencyclidine Screen,Urine Negative ng/mL (Cutoff=25)
[2017-04-11] MEDS ORDERED: *HR* LORazepam 2 MG/ML VIAL IM ONE (01:59)
--- NOTE | 2017-04-11 02:01 | Emergency Department Note ---
Disposition Clinical Impression: Suicidal ideation, Acute psychosis Disposition: Admitted As Inpatient Condition: Fair Referrals: NONE,PCP [Primary Care Provider] - Forms: ED Satisfaction Letter Time of Disposition: 05:33 Psych HPI - General Chief Complaint: ED Psychiatric Symptoms Stated Complaint: "Want to see 1A" Time Seen by Provider: 04/11/17 01:26 Source: patient Mode of arrival: ambulatory Limitations: no limitations Nursing Notes Reviewed: Yes Vital Signs Reviewed: Yes - History of Present Illness HPI Narrative: 27-year-old female with history of borderline personality disorder and depression, recently evaluated and discharged couple days ago from [facility], states today that she is having suicidal ideation, she is "just once and it all " possible plan includes running in traffic, has active hallucinations as well visual and auditory. Patient states that she just wants to and wants to kill herself. She wants to be evaluated by the psychiatric team. She denies fever chills productive cough chest pain abdominal pain. She endorses previous IV drug use but says that she has been cleaning as I use any stimulants for 1 month. It is not on any medication does not take any drugs besides smoking cigarettes in last week Pt complaint: suicidal ideation If medical clearance, reason: psychiatric condition Duration: constant History of similar episodes: Yes Improves with: none Worsens with: none Associated Psychiatric Symptoms: suicidal ideation, racing thoughts, auditory hallucinations Associated symptoms: Denies: confusion, headache, shortness of breath, vomiting , syncope - Related Data Home Medications Medication Instructions Recorded Confirmed No Known Home Drugs 08/18/16 08/18/16 Allergies Allergy/AdvReac Type Severity Reaction Status Date / Time vancomycin Allergy Itching Verified 04/11/17 01:14 All systems ED: reviewed and negative except as stated. Review of Systems: As Per HPI Constitutional: Denies: fever, chills Eyes: Denies: eye pain ENT ED: Denies: ear pain Cardiovascular: Denies: chest pain Respiratory: Denies: cough, dyspnea Gastrointestinal: Denies: abdominal pain, nausea Genitourinary: Denies: urgency Musculoskeletal: Denies: back pain, neck pain Integumentary: Denies: rash, abrasion Psychiatric: Reports: as per HPI, anxiety, depression, suicidal thoughts, auditory hallucinations, visual hallucinations. Denies: homicidal thoughts Past Medical History - Past Medical History Medical history: Reports: no medical history Psychiatric history: Reports: anxiety, bipolar, depression, previous psychiatric hospitalization, other POULTRY DRESSER history: Reports: no POULTRY DRESSER history - Social History Smoking Status: Current every day smoker Smokeless Tobacco Status: No Alcohol use: Reports: none Drug use: Reports: cocaine, opiates, IV Drug Use, other Physical Exam Constitutional: Thin young female appears older than stated age, is visibly agitated, stable vital signs Eyes: PERRLA, sclera anicteric ENT & Mouth: MMM Neck: normal inspection, neck is supple Resp: Katter wheezes bilaterally no resp distress CV: RRR, no m/g/r GI: normal inspection, soft, no guarding or rigidity Neuro: A&O3, CNII-XII grossly intact, CASAS Psych: Positive suicidal ideation positive visual and auditory hallucinations Skin: on limited exam, pockmarks charms, multiple pimples across face - General Limitations: no limitations General appearance: alert, in no apparent distress Course Course Narrative: 27-year-old female with active suicidal ideation, pink slip initiated do feel that she is actively suicidal possibly having active hallucinations as well. psychiatric workup plan for one-a evaluation and placement - Reevaluation(s) Reevaluation #1: Patient is admitted to psychiatry [facility] accepts patient. Medically cleared Time: 05:32 Vital Signs Temperature 98.1 F 04/11/17 01:14 Pulse Rate 105 04/11/17 01:14 Respiratory Rate 18 04/11/17 01:14 Blood Pressure 128/82 04/11/17 01:14 O2 Sat by Pulse Oximetry 98 04/11/17 01:14 Temperature 98.1 F 04/11/17 01:14 Pulse Rate 105 04/11/17 01:14 Respiratory Rate 18 04/11/17 01:14 Blood Pressure 128/82 04/11/17 01:14 O2 Sat by Pulse Oximetry 98 04/11/17 01:14 Oxygen Delivery Oxygen Delivery Room Air Psych - Differential Diagnosis Likely: acute psychosis, bipolar disorder, depression - Medical Records Medical records reviewed: Yes I reviewed the patient's medical records. - Lab Data Lab results reviewed: Yes I reviewed the patient's lab results. Result diagrams: 04/11/17 02:14 04/11/17 02:14 Lab Results 04/11/17 04/11/17 04/11/17 Range/Units 01:30 01:30 01:30 WBC (4.3-11.1) K/mcL RBC (3.82-4.97) M/mcL Hgb (11.5-15.4) g/dL Hct (35.3-44.9) % MCV (83.0-100.0) fL MCH (28.0-33.3) pg MCHC (31.6-35.5) g/dL RDW (11.5-14.5) % Plt Count (140-400) K/mcL MPV (9.4-12.4) fL Immature Gran % (0-4) % Seg Neutrophils % % Lymphocytes % % Monocytes % % Eosinophils % % Basophils % % Neutrophils # (1.6-8.9) K/mcL Lymphocytes # (0.6-4.6) K/mcL Monocytes # (0.0-1.3) K/mcL Eosinophils # (0.0-0.6) K/mcL Basophils # (0.0-0.2) K/mcL Sodium (136-145) mEq/L Potassium (3.5-4.5) mEq/L Chloride (98-109) mEq/L Carbon Dioxide (19-29) mEq/L BUN (7-20) mg/dL Creatinine (0.57-1.11) mg/dL Est GFR ( Amer) (> 60) Est GFR (Non-Af Amer) (> 60) BUN/Creatinine Ratio (6-26) Glucose (70-99) mg/dL Calculated Osmolality (280-300) Calcium (8.6-10.8) mg/dL Urine Color Yellow (Yellow) Urine Clarity Clear (Clear) Urine pH 5.5 (5.0-8.0) pH Units Ur Specific [place] 1.014 (1.010-1.025) Urine Protein Negative (Neg-Trace) mg/dL Urine Glucose (UA) Normal (Normal) mg/dL Urine Ketones Negative (Negative) mg/dL Urine Blood Negative (Negative) Urine Nitrite Negative (Negative) Urine Bilirubin Negative (Negative) Urine Urobilinogen Normal (Normal) mg/dL Ur Leukocyte Esterase Negative (Negative) Urine Test Negative (Negative) Salicylates (15-30) mg/dL Urine Opiates Screen Negative (Kzxeks=645) ng/mL Acetaminophen (10-30) mcg/mL Ur Barbiturates Screen Negative (Mnvxgx=898) ng/mL Ur Phencyclidine Scrn Negative (Cutoff=25) ng/mL Ur Amphetamines Screen Negative (Qdfefh=3473) ng/mL U Benzodiazepines Scrn Negative (Tmmbab=760) ng/mL Urine Cocaine Screen Negative (Cutoff= 300) ng/mL U Marijuana (THC) Screen Negative (Cutoff = 50) ng/mL Ethyl Alcohol (0-10) mg/dL 04/11/17 04/11/17 Range/Units 02:14 02:14 WBC 12.5 H (4.3-11.1) K/mcL RBC 4.29 (3.82-4.97) M/mcL Hgb 14.0 (11.5-15.4) g/dL Hct 39.3 (35.3-44.9) % MCV 91.6 (83.0-100.0) fL MCH 32.6 (28.0-33.3) pg MCHC 35.6 H (31.6-35.5) g/dL RDW 12.3 (11.5-14.5) % Plt Count 310 (140-400) K/mcL MPV 9.1 L (9.4-12.4) fL Immature Gran % 0.3 (0-4) % Seg Neutrophils % 65.9 % Lymphocytes % 27.1 % Monocytes % 5.6 % Eosinophils % 0.9 % Basophils % 0.2 % Neutrophils # 8.3 (1.6-8.9) K/mcL Lymphocytes # 3.4 (0.6-4.6) K/mcL Monocytes # 0.7 (0.0-1.3) K/mcL Eosinophils # 0.1 (0.0-0.6) K/mcL Basophils # 0.0 (0.0-0.2) K/mcL Sodium 139 (136-145) mEq/L Potassium 3.5 (3.5-4.5) mEq/L Chloride 103 (98-109) mEq/L Carbon Dioxide 28 (19-29) mEq/L BUN 11 (7-20) mg/dL Creatinine 0.77 (0.57-1.11) mg/dL Est GFR ( Amer) > 60 (> 60) Est GFR (Non-Af Amer) > 60 (> 60) BUN/Creatinine Ratio 14 (6-26) Glucose 96 (70-99) mg/dL Calculated Osmolality 287 (280-300) Calcium 9.7 (8.6-10.8) mg/dL Urine Color (Yellow) Urine Clarity (Clear) Urine pH (5.0-8.0) pH Units Ur Specific [place] (1.010-1.025) Urine Protein (Neg-Trace) mg/dL Urine Glucose (UA) (Normal) mg/dL Urine Ketones (Negative) mg/dL Urine Blood (Negative) Urine Nitrite (Negative) Urine Bilirubin (Negative) Urine Urobilinogen (Normal) mg/dL Ur Leukocyte Esterase (Negative) Urine Test (Negative) Salicylates < 5.0 L (15-30) mg/dL Urine Opiates Screen (Hhzvub=342) ng/mL Acetaminophen < 1.0 L (10-30) mcg/mL Ur Barbiturates Screen (Ippbsz=870) ng/mL Ur Phencyclidine Scrn (Cutoff=25) ng/mL Ur Amphetamines Screen (Keuhcb=7886) ng/mL U Benzodiazepines Scrn (Ldwdmo=843) ng/mL Urine Cocaine Screen (Cutoff= 300) ng/mL U Marijuana (THC) Screen (Cutoff = 50) ng/mL Ethyl Alcohol < 10 (0-10) mg/dL Psychiatric Medical Clearance - Medical Clearance Checklist Does the patient have a NEW psychiatric condition?: No Any abnormalities indicating possible medical illness?: No Any history of medical issues?: No Medical History: Edema (Acute) IVDU (intravenous drug user) (Chronic) Nausea (Acute) Viral infection (Acute) Swelling of extremity (Acute) DVT prophylaxis (Acute) Acute anxiety (Acute) Suicidal ideation (Acute) Acute psychosis (Acute) Abscess (Inactive) Acute anxiety (Inactive) Cellulitis of multiple sites of right hand and fingers (Inactive) Chest pain (Inactive) Depression (Inactive) Drug overdose (Inactive) IV drug abuse (Inactive) Opiate overdose (Inactive) Poisoning by opiate or related narcotic (Inactive) Suicidal ideation (Inactive) No Social History Section defined Any abnormal vital signs prior to transfer?: No Current Vitals: Last Vital Signs Temp 98.1 F 04/11/17 01:14 Pulse 105 04/11/17 01:14 Resp 18 04/11/17 01:14 BP 128/82 04/11/17 01:14 Pulse Ox 98 04/11/17 01:14 Is the patient intoxicated or cognitively impaired?: No Psychiatric Lab Panel: Drug Levels and Toxicity 04/11/17 04/11/17 01:30 02:14 Urine Opiates Screen Negative Acetaminophen < 1.0 L Ur Barbiturates Screen Negative Ur Phencyclidine Scrn Negative Ur Amphetamines Screen Negative U Benzodiazepines Scrn Negative Urine Cocaine Screen Negative U Marijuana (THC) Screen Negative Ethyl Alcohol < 10 Any abnormalities on the physical exam?: No Any abnormal labs?: No Abnormal Labs: Abnormal lab results WBC 12.5 K/mcL (4.3-11.1) H 04/11/17 02:14 MCHC 35.6 g/dL (31.6-35.5) H 04/11/17 02:14 MPV 9.1 fL (9.4-12.4) L 04/11/17 02:14 Salicylates < 5.0 mg/dL (15-30) L 04/11/17 02:14 Acetaminophen < 1.0 mcg/mL (10-30) L 04/11/17 02:14 Does the patient require durable medical equiptment?: No Is the patient ambulatory?: Yes Is the patient a fall risk?: No Has the patient been medically cleared?: Yes Any acute medical condition require Tx prior to transfer?: No Attestation Statement - Attestation Attestation: I, Ad Martinez MD, personally evaluated this patient and discussed their management with the resident physician. I reviewed the resident's note and agree with the documented findings, medical decision making, and plan of care. 27-year-old female presents to the emergency department with a complaint of suicidal ideation. History of similar problems in the past. She also has been having hallucinations. Patient is very anxious and paranoid and does not want to be touched. On examination patient is a well-developed well-nourished female in no acute distress. She is alert and oriented 3. There is no cyanosis or diaphoresis. Breath sounds are clear and equal bilaterally. Heart regular. Abdomen soft and nontender with normal bowel sounds. Labs reviewed. 1A psychiatry service consulted to evaluate patient and after evaluation patient is being admitted to the [address]ry unit.
[2017-04-11 02:26] LABS: Bilirubin,Urine Negative (Negative); Blood,Urine Negative (Negative); Clarity,Urine Clear (Clear); Color,Urine Yellow (Yellow); Glucose,Urine (UA) Normal (Normal); Ketones,Urine Negative (Negative); Leukocyte Esterase,Urine Negative (Negative); Nitrite,Urine Negative (Negative); PH,Urine 5.5 pH Units (5.0-8.0); Protein,Urine Negative (Neg-Trace); Specific Gravity,Urine 1.014 (1.010-1.025); Urobilinogen,Urine Normal (Normal)
[2017-04-11 02:32] LABS: Basophils % 0.2 %; Eosinophils # 0.1 K/mcL (0.0-0.6); Eosinophils % 0.9 %; Hematocrit 39.3 % (35.3-44.9); Immature Granulocytes % 0.3 % (0-4); Lymphocytes # 3.4 K/mcL (0.6-4.6); Lymphocytes % 27.1 %; Mean Corpuscular HGB Conc 35.6 g/dL (31.6-35.5); Mean Corpuscular Hemoglobin 32.6 pg (28.0-33.3); Mean Corpuscular Volume 91.6 fL (83.0-100.0); Mean Platelet Volume 9.1 fL (9.4-12.4); Monocytes # 0.7 K/mcL (0.0-1.3); Monocytes % 5.6 %; Neutrophils # 8.3 K/mcL (1.6-8.9); Platelet Count 310 K/mcL (140-400); Red Blood Count 4.29 M/mcL (3.82-4.97); Red Cell Distribution Width 12.3 % (11.5-14.5); Segmented Neutrophils % 65.9 %
[2017-04-11 02:48] LABS: BUN/Creatinine Ratio 14 (6-26); Blood Urea Nitrogen 11 mg/dL (7-20); Calcium 9.7 mg/dL (8.6-10.8); Carbon Dioxide 28 mEq/L (19-29); Chloride 103 mEq/L (98-109); Glucose 96 mg/dL (70-99); Osmolality,Calculated 287 (280-300); Potassium 3.5 mEq/L (3.5-4.5); Sodium 139 mEq/L (136-145); eGFR For African Americans > 60 (> 60); eGFR For Non-African Americans > 60 (> 60)
[2017-04-11 02:49] LABS: Acetaminophen < 1.0 mcg/mL (10-30); Ethanol < 10 mg/dL (0-10); Salicylate < 5.0 mg/dL (15-30)
[2017-04-11] MEDS ORDERED: traZODone 50 MG TABLET PO PRN (06:18)
[2017-04-11] MEDS ORDERED: Ibuprofen 400 MG TABLET PO PRN (06:18)
[2017-04-11] MEDS ORDERED: Haloperidol Lactate 5 MG/ML VIAL IM PRN ×2 (06:18→06:29)
[2017-04-11] MEDS ORDERED: *HR* LORazepam 1 MG TABLET PO PRN (06:18)
[2017-04-11] MEDS ORDERED: Mag Hydrox/Al Hydrox/Simeth 30 ML UDC PO PRN (06:18)
[2017-04-11] MEDS ORDERED: MOM Conc 10 ML UD.LIQ PO PRN (06:18)
[2017-04-11] MEDS ORDERED: *HR* LORazepam 2 MG/ML VIAL IM PRN ×2 (06:18→06:30)
[2017-04-11] MEDS ORDERED: Nicotine 21 MG PATCH.TD24 TD SCH (09:00)
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
[2017-04-11] MEDS: Nicotine 2 MG GUM BC PRN ×4 (11:53→21:19)
[2017-04-11] MEDS: Gabapentin 300 MG CAPSULE PO SCH ×2 (14:36→21:18)
[2017-04-11] MEDS: Mirtazapine 15 MG TABLET PO SCH (21:18)
[2017-04-11] MEDS: hydrOXYzine pamoate 25 MG CAPSULE PO PRN (21:21)
[2017-04-12] MEDS: Gabapentin 300 MG CAPSULE PO SCH ×3 (08:55→20:23)
[2017-04-12] MEDS: Nicotine 2 MG GUM BC PRN ×2 (08:57→15:42)
--- NOTE | 2017-04-12 10:47 | Psychiatry Progress Note ---
Date of Encounter: 04/12/17 Time of Encounter: 09:17 Subjective Interval history: Patient seen and interviewed. More clear and coherent. Confusion has subsided. Patient is anxious and nervous about leaving [facility] and may not be able to return back there. Patient reported that it is a court ordered inpatient rehabilitation that she has to finish in order to avoid senior living time. I assured the patient that our vp digital marketing social media and crm will contact [facility] and will give her an update. Patient is tolerating medications fairly well. Slept well last night. Tolerating medications fairly well. Complaining of some nervousness and anxiety. Suicidal ideations have subsided. I encouraged her to start working on a safety plan. Review of Systems Psychiatric: Reports: depression, anxiety, difficulty concentrating, hopelessness Objective: Exam Patient orientation: Yes Person, Yes Time, Yes Place Level of alertness: Alert Patient appearance: Unkempt Behavior: cooperative, anxious Psychomotor activity: Normal Eye contact: Maintains Eye Contact Mood description: Anxious Affect description: anxious Speech pattern: Normal rate, Normal rhythm, Normal tone Speech volume: Normal Thought process: Linear, Goal Oriented Thought content: No Suicidal ideation, No Homicidal ideation, No Overt delusions Perceptual disturbances: No Auditory hallucinations, No Visual hallucinations Judgment: Fair Insight: Partial Results - Vital Signs Vital Signs: Temp Pulse Resp BP Pulse Ox 98.5 F 107 16 142/95 98 04/11/17 21:00 04/11/17 21:00 04/11/17 21:00 04/11/17 21:00 04/11/17 01:14 Assessment and Plan (1) MDD (major depressive disorder), recurrent severe, without psychosis Current visit: Yes Status: Acute Plan: Continue hospitalization, Close observation, Suicide Precautions per unit protocol, Encourage participation in unit milieu, Group Therapy, Monitor sleep, Monitor appetite Additional Plan: We will increase Neurontin to 600 mg 3 times a day for anxiety and restlessness Risks, benefits, side effects, alternatives discussed w/pt: Yes Patient agreeable to treatment: Yes (2) PTSD (post-traumatic stress disorder) Current visit: Yes Status: Acute Plan: Continue hospitalization, Close observation, Suicide Precautions per unit protocol, Encourage participation in unit milieu, Group Therapy, Monitor sleep, Monitor appetite Risks, benefits, side effects, alternatives discussed w/pt: Yes Patient agreeable to treatment: Yes (3) Polysubstance dependence in early, early partial, sustained full, or sustained partial remission Current visit: Yes Status: Acute Plan: Continue hospitalization, Close observation, Suicide Precautions per unit protocol, Encourage participation in unit milieu, Group Therapy, Monitor sleep, Monitor appetite Risks, benefits, side effects, alternatives discussed w/pt: Yes Patient agreeable to treatment: Yes Consult Discharge Plan - Plan Referrals: NONE,PCP [Primary Care Provider] -
[2017-04-12] MEDS: hydrOXYzine pamoate 25 MG CAPSULE PO PRN (15:04)
[2017-04-12] MEDS: Mirtazapine 15 MG TABLET PO SCH (20:23)
[2017-04-13] MEDS: Gabapentin 300 MG CAPSULE PO SCH ×2 (08:24→12:58)
[2017-04-13] MEDS ORDERED: Nicotine 21 MG PATCH.TD24 TD SCH (09:00)
--- NOTE | 2017-04-13 11:16 | Discharge Summary ---
Date of Encounter: 04/13/17 Time of Encounter: 10:25 Diagnosis - Discharge Diagnosis (1) MDD (major depressive disorder), recurrent severe, without psychosis Status: Chronic (2) Polysubstance dependence in early, early partial, sustained full, or sustained partial remission Status: Acute (3) Borderline personality disorder Status: Chronic Medications - Discharge Medications No Known Home Drugs 08/18/16 [History] 3 Allergy/AdvReac Type Severity Reaction Status Date / Time vancomycin Allergy Itching Verified 04/11/17 01:14 Provider Date of admission: 04/11/17 06:18 Primary care physician: PCP NONE Discharging clinician: Chary Hernandez Assessment and Plan - Patient/Caregiver Discharge Instructions Activity: resume usual activities as tolerated Diet: regular diet Additional Instructions: Patient declines for any outpatient mental health or substance abuse follow-up to be arranged on her behalf. Patient has been given exhaustive resources for primary care, mental health and substance abuse services in her region, as well as 19/01 accessible crisis services. Additionally, [facility] staff will be at the [facility] and can assist with appropriate linkages as patient permits. - Follow up Plan Follow up with: NONE,PCP [Primary Care Provider] - Functional capacity at discharge: independent ambulation Overall status at discharge: Stable Disposition: Transfer Other Hospital Course Hospital course: Ms. Adams is a 27 year old female with a long-standing psychiatric history of depression, possible PTSD, borderline personality disorder who presented to the hospital after being kicked out of the [facility] for inappropriate behavior. Patient endorsed suicidal ideation on initial arrival to the hospital but now denies wanting to hurt herself. She states that she had a "nervous breakdown and that [employer] [facility] kicked her out because of this. She also admits that she did play on her psychiatric symptoms in order to be admitted to the hospital and avoid possible shelter time. She is now worried that she will have to go back to shelter because she did not complete her court ordered treatment. She is not interested in going back to rehabilitation at this time. She is not interested in further mental health treatment. She does not feel that she needs psychiatric medications. For the most part she has been cooperative with staff but did state that she would like to leave the hospital. She became frustrated because she initially had no place to go. She was able to calm down and walk rate with staff about possible discharge plan. Patient would like to go to a homeless [facility] in [place] and try to start fresh there. She denies suicidal or homicidal ideation, intent, or plan. She did become agitated but was able to calm down once she realized staff was trying to cooperate with her and help her with her discharge planning. She does have poor insight into her drug use and we encouraged her to continue to stay off drugs and comply with her safety officer. She is discharged in stable condition and she declined outpatient follow-up at this time. - Time Spent with Patient Total time spent providing and/or coordinating discharge services: Greater than 30 minutes Quality - Multiple Antipsychotics Patient discharged on 2 or more antipsychotic medications: No Procedures - Procedures Procedures: Medication Management, Crisis Stabilization, Supportive Therapy, Group Therapy, Psychoeducational Therapy Mental Status Exam - Mental Status Exam Patient orientation: Yes Person, Yes Time, Yes Place Level of alertness: Alert Patient appearance: Appropriate, Well Groomed Behavior: calm, cooperative Psychomotor activity: Normal Eye contact: Maintains Eye Contact Mood description: Euthymic/stable Affect description: congruent with mood, full range Speech pattern: Normal rate, Normal rhythm, Normal tone Speech Volume: Normal Thought process: Linear, Goal Oriented Thought Content: No Suicidal ideation, No Homicidal ideation, No Overt delusions Perceptual Disturbances: No Auditory hallucinations, No Visual hallucinations Judgment: Limited Insight: Partial
[2017-04-13 11:23] VITALS: BP 120/90
== END 2017-04-13 13:20 | disposition other institution (70) | DRG 751 ==
LOC: 1ANU 01:12 → EMEROO 01:12 → 1ANU 06:07
PROVIDERS: ADMIT Psychiatry & Neurology Psychiatry; ATTEND Psychiatry & Neurology Psychiatry